=== PATIENT | female | born 1980 | race Two or more races ===

== ENCOUNTER → 2022-10-17 | Emergency (ER) | payer OTHER ==
[~2022-10-17] VITALS: Ht 157.5 cm; Wt 105.2 kg
[~2022-10-17] MED LIST: DIETHYLPROPION75 MG; DILTIAZEM 24HR180 MG
== END | disposition left against medical advice (07) ==
LOC: ER 10:37
DX: I10 Essential (primary) hypertension (principal)

== ENCOUNTER 2022-11-25 07:50 | Outpatient (CLI) | payer OTHER | END 2022-11-25 07:59 | disposition home or self-care (01) | LOC: SONOGRAMA 07:50 | PROVIDERS: ATTEND Obstetrics & Gynecology Gynecology | DX: N92.0 Excessive and frequent menstruation with regular cycle (principal) ==